=== PATIENT | female | born 1995 | race Two or more races ===

== ENCOUNTER 2020-06-02 15:12 | Emergency (ER) | payer OTHER ==
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
[2020-06-02 15:39] VITALS: BP 115/68; PULSE 71; TEMP 98.1; BMI 25.8
--- OUTSIDE RECORDS SUMMARY | 2020-06-02 15:40 | XMS ---
:1995 Author Organization [facility] Support Name Relationship Address Phone SE Unavailable Unavailable Unavailable BREE KARIMI GRANDFATHER [address] [place] [address] Higinio Karimi Unavailable [address] [place] [address] [place] [address] Re-disclosure Warning The records that you are about to access may contain information from federally- assisted alcohol or drug abuse programs. If such information is present, then the following federally mandated warning applies: This information has been disclosed to you from records protected by federal confidentiality rules (42 CFR part 2). The federal rules prohibit you from making any further disclosure of this information unless further disclosure is expressly permitted by the written consent of the person to whom it pertains or as otherwise permitted by 42 CFR part 2. A general authorization for the release of medical or other information is NOT sufficient for this purpose. The Federal rules restrict any use of the information to criminally investigate or prosecute any alcohol or drug abuse patient.The records that you are about to access may contain highly sensitive health information, the redisclosure of which is protected by Article 27-F of the [facility] Public Health law. If you continue you may haveaccess to information: Regarding HIV / AIDS; Provided by facilities licensed or operated by the [facility] Office of Mental Health; or Provided by the [facility] Office for People With Developmental Disabilities. If such information is present, then the following [facility] mandated warning applies: This information has been disclosed to you from confidential records which are protected by state law. State law prohibits you from making any further disclosure of this information without the specific written consent of the person to whom it pertains, or as otherwise permitted by law. Any unauthorized further disclosure in violation of state law may result in a fine or detention sentence or both. A general authorization for the release of medical or other information is NOT sufficient authorization for further disclosure. Insurance Providers Payer name Policy type Policy ID Covered Covered constitution party's Policy P carol / Coverage constitution party ID relationship to [place] Inf ormation type hall[facility] [id number] SP [id number] MEDICAID COMM PLAN PENDING [id number] SP [id number] WC/NF ONLY Results ID Date Data Source [id number] 02/03/2020 10:03:00 PM EDT [facility] Name Value Range Interpretation Code Description Data Veronica rce(s) Supporting Document(s ) COV2 [facility] This lab was ordered by DARIELA CHARLES and reported by [facility]. Procedure
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
== END 2020-06-02 15:56 | disposition home or self-care (01) ==
LOC: JERFT 15:12
DX: S16.1XXA Strain of muscle, fascia and tendon at neck level, initial encounter (principal); S90.02XA Contusion of left ankle, initial encounter
CPT/HCPCS: 99283-25